=== PATIENT | female | born 1965 | race Caucasian/White ===

== ENCOUNTER 2016-07-15 23:16 | Emergency (ER) | payer OTHER ==
--- NOTE | 2016-07-16 00:26 | DIAGNOSTIC IMAGING REPORT ---
PROCEDURE: XR WRIST MIN 3 VIEWS - RIGHT INDICATION: TRAUMA/INJURY TECHNIQUE: Four views. COMPARISON: None. FINDINGS: Osteopenia. There is no fracture or dislocation. Small rounded chronic-appearing calcification ventral to the lunate. Moderately severe first carpometacarpal joint degenerative changes. IMPRESSION: 1. No acute changes 2. Moderately severe osteoarthritic changes of the first carpometacarpal joint
--- NOTE | 2016-07-16 01:06 | ED CLINICAL REPORT ---
Clinical Report - Physicians/Mid Levels [facility] [address] [place] [address] 07/15/2016 23:19 Patient: MILAN ALEXANDER Time Seen: 2328. Arrived- By private vehicle. Historian- patient. HISTORY OF PRESENT ILLNESS Chief Complaint: Injury to the right wrist. The injury happened today. (dance scott). Fell (backwards on to outstretched hand while dancing). Patient is experiencing moderate pain. Patient denies injury to the head or neck. No other injury. ( reports no loss of consciousness, or other injury to the back, abdomen, pelvis, chest, or other extremities.). REVIEW OF SYSTEMS The patient has had swelling. No tingling, numbness, foreign body or skin laceration. All systems otherwise negative, except as recorded above. PAST HISTORY See nurses notes. Tetanus immunization status is up-to-date. Medications: None. Allergies: No Known Drug Allergy. SOCIAL HISTORY Never smoker. Occasional alcohol use. No drug use. No recent travel. Is a local resident. ADDITIONAL NOTES The nursing notes have been reviewed. PHYSICAL EXAM Vital Signs: 07/15/2016 23:24 BP: 132/88. HR: 83. RR: 16. O2 saturation: 97%. Temp: 97.6 F. Pain level now: 8/10. Blood pressure normal. Oxygen saturation normal. Appearance: Alert. Oriented X3. No acute distress. Head: Head atraumatic. Eyes: Pupils equal, round and reactive to light. Eyes normal inspection. ENT: Ears normal. Nose normal. Pharynx normal. Neck: Normal inspection. Neck supple. C-spine non-tender. CVS: Normal heart rate and rhythm. Heart sounds normal. Pulses normal. Respiratory: No respiratory distress. Breath sounds normal. Chest nontender. Abdomen: No visible injury. Soft and nontender. Bowel sounds normal. Back: No tenderness. Normal inspection. ROM normal. No vertebral point tenderness. Skin: Skin warm and dry. Skin intact. Extremities: (no snuffbox tenderness. No pain with axial loading of the thumb. Mild amount of edema to the radial aspect of the distal forearm/wrist with appropriate amount of tenderness. Compartments are soft. No crepitus. No bony abnormalities. Patient is able to make an okay sign, cross fingers, and extension/flexion at the wrist. Skin is intact. Sensation is intact. Radial pulses are 2+ and symmetrical the contralateral side. Sensation in all digits are intact. no overlying skin changes.). Extremities otherwise negative. Neuro, Vascular and Tendons: Vascular status intact. Sensation intact. Motor intact. Tendon function intact. Neuro: Oriented X 3. No motor deficit. No sensory deficit. PROGRESS AND PROCEDURES Course of Care: he patient is a pleasant 51 year-old female with no pertinent past medical history presenting for eval of right-sided wrist pain. Patient had a fall onto outstretched hands and fell backwards. No other signs of injury. Patient does not require CT scan of the head at the neck based on her history and examination with neck is criteria or [place] head CT scan role. Patient also with a normal neurological examination. Patient will be evaluated radiographs of the wrist. Patient declines offers of pain medication at this time. No neurovascular compromise. Patient is agreeable to the treatment plan. patient's workup was remarkable for fracture of the distal radius. Head discussion the patient in regards to her injury. Recommended patient follow up with orthopedic surgery in regards to her injury and cautioned patient in regards to appropriate follow-up to increase her chances ofimproved healing. Discussed risk factors in the future for arthritis. Patient states that she does have a history of arthritis. After the patient as been splinted, repeat neurovascular exam continues to be unremarkable. No signs of compartment syndrome. Patient is resting in bed and in no acute distress. Discussed with the patient workup here in the emergency department included home care, follow-up, and return precautions. All questions have been answered. The patient expressed understanding of these instructions and was agreeable to them. The patient states that she will follow up with her orthopedic surgeon who is working on her knee. Information for another orthopedic surgeon provided in case the patient is unable to follow up with her orthopedic surgeon. CLINICAL IMPRESSION 07/16/2016 00:23 BP: 114/71. HR: 71. RR: 16. O2 saturation: 99%. Pain level now: 8/10. 07/15/2016 23:24 BP: 132/88. HR: 83. RR: 16. O2 saturation: 97%. Temp: 97.6 F. Pain level now: 8/10. Blood pressure normal. Oxygen saturation normal. Closed nondisplaced fracture of the distal radius (acute). INSTRUCTIONS Warnings: GENERAL WARNINGS: Return or contact your physician immediately if your condition worsens or changes unexpectedly, if not improving as expected, or if other problems arise. Specifically return if pain, vomiting, bleeding, breathing difficulty or fever. Your Current Medications: CONTINUE TAKING THE FOLLOWING MEDICATIONS: None*. OTC Medications: Acetaminophen (available over the counter): take according to label instructions. Follow-up: Return to the emergency department as needed. Follow up with your doctor in three days. Reason for referral: recheck today's concerns. Summary of care provided to patient via paper. Screening today revealed the patient's blood pressure to be in the normal range. The patient should follow up with a primary care provider for blood pressure management. Understanding of the discharge instructions verbalized by patient. Follow-up with: [facility], , [address], , [place] [address] Follow up in one week. Reason for referral: recheck today's concerns if you are unable to see your bone doctor. Summary of care provided to patient via paper. (Electronically signed by Ras Landaverde Dr. 07/20/2016 16:37)
--- NOTE | 2016-07-16 01:06 | ED NURSING NOTES ---
Clinical Report - Nurses [facility] [place] [address] 07/15/2016 23:19 [id number] Triage time 23:24. Acuity: LEVEL 4. Chief Complaint: INJURY TO RIGHT WRIST. --23:29 Cristy Latif R.N. 23:24 07/15/16. BP: 132/88. HR: 83. RR: 16. O2 saturation: 97% on room air. Temp: 97.6 F. Pain level now: 11/02. --23:29 Cristy Latif R.N. Weight: 63.5 kg stated. Height/Length: 69 inches Per Patient. BMI: 20.7. --23:23 Cristy Latif R.N. Medications None. --23:26 Cristy Latif R.N. Allergies No Known Drug Allergy. --23:26 Cristy Latif R.N. History Arrived by private vehicle. Historian: patient. This occurred today (2 hours). ( dancing and hurt wrist when she fell). 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 SOCIAL HX: Never smoker. Alcohol use; consumes beer weekly. No drug use. No infectious disease exposure. FALL RISK ASSESSMENT: Fall risk assessment completed. No fall risk identified. NUTRITIONAL RISK ASSESSMENT: The nutritional risk assessment revealed no deficiencies. FUNCTIONAL ASSESSMENT: Functional assessment: no impairments noted. LEARNING NEEDS ASSESSMENT: The learning needs assessment revealed no barriers. SKIN INTEGRITY ASSESSMENT: Skin integrity risk assessment completed. No skin integrity risk identified. --23:29 Cristy Latif R.N. ADDITIONAL SURGERIES: Knee Surgery. --23:27 Cristy Latif R.N. Interventions ID band on patient. To treatment room. --23:29 Cristy Latif R.N. PHYSICAL ASSESSMENT Ambulatory to room. GENERAL / NEURO / PSYCH: Oriented X 4. Alert. EXTREMITIES: Limited ROM present. Capillary refill is less than 2 seconds in the extremities. Extremity pulses are within normal limits. Right wrist: tenderness, swelling and deformity. Limited ROM secondary to pain. SKIN: Skin intact. Skin is warm and dry. --23:33 Cristy Latif R.N. NURSING PROGRESS NOTES Patient ready for evaluation- chart flagged. --23:33 Cristy Latif R.N. Cold pack applied. --23:33 Cristy Latif R.N. 00:21 07/16/16. ( patient up to use the restroom). --00:21 Cristy Latif R.N. 00:23 07/16/16. BP: 114/71. HR: 71. RR: 16. O2 saturation: 99% on room air. Pain level now: 11/02. --00:24 Cristy Latif R.N. Short arm volar fiberglass upper extremity splint applied to right wrist by tech. Distal pulses intact, sensation intact and motor within normal limits. --00:52 Jack Jeronimo, PERRY Tech1. DISPOSITION / DISCHARGE 01:07/16/16. Departure time: 0110. Condition at departure: improved. No learning barriers present. Discharge instructions provided and reviewed with the patient and spouse. Reviewed referral to an orthopedic surgeon for followup. Activity restrictions reviewed. Follow up contact number. Verbalized understanding. Written instructions provided in German. The patient was discharged home and accompanied by spouse. She left the Emergency Department ambulatory and via private vehicle. Spouse driving. --01:13 Cristy Latif R.N. 01:11 07/16/16. BP: 114/71. HR: 71 (normal rate). RR: 16 (unlabored). O2 saturation: 99% on room air. Temp: 98.6 F. Pain level now: 11/02. --01:13 Cristy Latif R.N. Locked/Released at 07/16/2016 1:13 by Cristy Latif R.N.
--- NOTE | 2016-07-16 01:06 | ED NURSING NOTES ---
Clinical Report - Nurses [facility] [place] [address] 07/15/2016 23:19 [id number] TRI[facility] Triage time 23:24. Acuity: LEVEL 4. Chief Complaint: INJURY TO RIGHT WRIST. --23:29 Cristy Latif R.N. 23:24 07/15/16. BP: 132/88. HR: 83. RR: 16. O2 saturation: 97% on room air. Temp: 97.6 F. Pain level now: 11/02. --23:29 Cristy Latif R.N. Weight: 63.5 kg stated. Height/Length: 69 inches Per Patient. BMI: 20.7. --23:23 Cristy Latif R.N. Medications None. --23:26 Cristy Latif R.N. Allergies No Known Drug Allergy. --23:26 Cristy Latif R.N. History Arrived by private vehicle. Historian: patient. This occurred today (2 hours). ( dancing and hurt wrist when she fell). 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 SOCIAL HX: Never smoker. Alcohol use; consumes beer weekly. No drug use. No infectious disease exposure. FALL RISK ASSESSMENT: Fall risk assessment completed. No fall risk identified. NUTRITIONAL RISK ASSESSMENT: The nutritional risk assessment revealed no deficiencies. FUNCTIONAL ASSESSMENT: Functional assessment: no impairments noted. LEARNING NEEDS ASSESSMENT: The learning needs assessment revealed no barriers. SKIN INTEGRITY ASSESSMENT: Skin integrity risk assessment completed. No skin integrity risk identified. --23:29 Cristy Latif R.N. ADDITIONAL SURGERIES: Knee Surgery. --23:27 Cristy Latif R.N. Interventions ID band on patient. To treatment room. --23:29 Cristy Latif R.N. PHYSICAL ASSESSMENT Ambulatory to room. GENERAL / NEURO / PSYCH: Oriented X 4. Alert. EXTREMITIES: Limited ROM present. Capillary refill is less than 2 seconds in the extremities. Extremity pulses are within normal limits. Right wrist: tenderness, swelling and deformity. Limited ROM secondary to pain. SKIN: Skin intact. Skin is warm and dry. --23:33 Cristy Latif R.N. NURSING PROGRESS NOTES Patient ready for evaluation- chart flagged. --23:33 Cristy Latif R.N. Cold pack applied. --23:33 Cristy Latif R.N. 00:21 07/16/16. ( patient up to use the restroom). --00:21 Cristy Latif R.N. 00:23 07/16/16. BP: 114/71. HR: 71. RR: 16. O2 saturation: 99% on room air. Pain level now: 11/02. --00:24 Cristy Latif R.N. Short arm volar fiberglass upper extremity splint applied to right wrist by tech. Distal pulses intact, sensation intact and motor within normal limits. --00:52 Jack Jeronimo, PERRY Tech1. DISPOSITION / DISCHARGE 01:07/16/16. Departure time: 0110. Condition at departure: improved. No learning barriers present. Discharge instructions provided and reviewed with the patient and spouse. Reviewed referral to an orthopedic surgeon for followup. Activity restrictions reviewed. Follow up contact number. Verbalized understanding. Written instructions provided in [place]. The patient was discharged home and accompanied by spouse. She left the Emergency Department ambulatory and via private vehicle. Spouse driving. --01:13 Cristy Latif R.N. 01:11 07/16/16. BP: 114/71. HR: 71 (normal rate). RR: 16 (unlabored). O2 saturation: 99% on room air. Temp: 98.6 F. Pain level now: 11/02. --01:13 Cristy Latif R.N. Locked/Released at 07/16/2016 1:13 by Cristy Latif R.N.
--- NOTE | 2016-07-16 01:07 | ED ORDER SUMMARY ---
..... Patient: MILAN ALEXANDER OrderSheet [facility] VisitID: [id number] [address] [place] [address] 51y, F Registration Date/Time: 07/15/2016 ORDER SHEET Weight: 63.5 kg (stated) Allergies: No Known Drug Allergy GENERAL ORDERS: Wrist 3 or 4V Right Urgent (23:34 07/15/2016 TChapman R.N. per protocol) (Ack 23:35 AMcQuoid ER Tech1) (23:55 RFay) Ice (23:49 07/15/2016 Tex Coulter) (0:01 TChapman R.N.) Splint (UE) (Right) (Volar) (Short Arm) (00:33 07/16/2016 Tex Coulter) (Ack 0:35 IJurca ER Tech1) (0:41 TChapman R.N.) MEDICATION ORDERS: IV FLUIDS: ORDER SHEET NOTES: [Electronically signed by Cristy Latif R.N. (:07/16/2016)] [Electronically signed by Ras Landaverde Dr. (16:37 07/20/2016)] [Electronically locked/signed by Cristy Latif R.N. (:07/16/2016)]
--- NOTE | 2016-07-16 01:07 | ED ORDER SUMMARY ---
..... Patient: MILAN ALEXANDER OrderSheet [facility] VisitID: [id number] [address] [place] [address] 51y, F Registration Date/Time: 07/15/2016 ORDER SHEET Weight: 63.5 kg (stated) Allergies: No Known Drug Allergy GENERAL ORDERS: Wrist 3 or 4V Right Urgent (23:34 07/15/2016 TChapman R.N. per protocol) (Ack 23:35 AMcQuoid ER Tech1) (23:55 RFay) Ice (23:49 07/15/2016 Tex Coulter) (0:01 TChapman R.N.) Splint (UE) (Right) (Volar) (Short Arm) (00:33 07/16/2016 Tex Coulter) (Ack 0:35 IJurca ER Tech1) (0:41 TChapman R.N.) MEDICATION ORDERS: IV FLUIDS: ORDER SHEET NOTES: [Electronically signed by Cristy Latif R.N. (:07/16/2016)] [Electronically signed by Ras Landaverde Dr. (16:37 07/20/2016)] [Electronically locked/signed by Cristy Latif R.N. (:07/16/2016)]
--- NOTE | 2016-07-20 16:37 | ED MED RECONCILIATION SUMMARY ---
Patient: MILAN ALEXANDER Medication Reconciliation Report [facility] VisitID: [id number] [address] [place] [address] 51y, F Registration Date/Time: 07/15/2016 Weight: 63.5 kg Height/Length: 69 in. BMI: 20.7 ALLERGIES: No Known Drug Allergy The patient's Home Medications are listed below: NONE. The source(s) of the original Home Medication information: Not obtained. The following Medications were given to the patient in the Emergency Department: None. The following Medications were prescribed to the patient: Acetaminophen (available over the counter): take according to label instructions. -- Ras Landaverde Dr.
--- NOTE | 2016-07-20 16:37 | ED DISCHARGE INSTRUCTIONS ---
Patient: MILAN ALEXANDER General Instructions [facility] VisitID: [id number] [address] [place] [address] 51y, F Registration Date/Time: 07/15/2016 07/16/2016 00:23 BP: 114/71. HR: 71. RR: 16. O2 saturation: 99%. Pain level now: 810. 07/15/2016 23:24 BP: 132/88. HR: 83. RR: 16. O2 saturation: 97%. Temp: 97.6 F. Pain level now: 810. Blood pressure normal. Oxygen saturation normal. Closed nondisplaced fracture of the distal radius (acute). INSTRUCTIONS Warnings: GENERAL WARNINGS: Return or contact your physician immediately if your condition worsens or changes unexpectedly, if not improving as expected, or if other problems arise. Specifically return if pain, vomiting, bleeding, breathing difficulty or fever. Your Current Medications: CONTINUE TAKING THE FOLLOWING MEDICATIONS: None*. OTC Medications: Acetaminophen (available over the counter): take according to label instructions. Follow-up: Return to the emergency department as needed. Follow up with your doctor in three days. Reason for referral: recheck today's concerns. Summary of care provided to patient via paper. Screening today revealed the patient's blood pressure to be in the normal range. The patient should follow up with a primary care provider for blood pressure management. Understanding of the discharge instructions verbalized by patient. Follow-up with: [facility], , [address], [place], [address] Follow up in one week. Reason for referral: recheck today's concerns if you are unable to see your bone doctor. Summary of care provided to patient via paper. ADDITIONAL INFORMATION Fracture: Wrist (General) You have a fracture (break) of a bone in your wrist. This may be a small crack or chip in the bone; or a major break with the broken parts pushed out of position. Wrist fractures are treated with a splint or cast. They take about 4-6 weeks to heal. Severe injuries may require surgery. Home Care: Keep your arm elevated to reduce pain and swelling. When sitting or lying down elevate your arm above the level of your heart. You can do this by placing your arm on a pillow that rests on your chest or on a pillow at your side. This is most important during the first 48 hours after injury. Apply an ice pack (ice cubes in a plastic bag, wrapped in a towel) over the injured area for 20 minutes every 1-2 hours the first day. You can place the ice pack inside the sling and directly over the splint/cast. Continue with ice packs 3-4 times a day for the next two days, then as needed for the relief of pain and swelling. Keep the cast/splint completely dry at all times. Bathe with your cast/splint out of the water, protected with a large plastic bag, rubber-banded at the top end. If a fiberglass splint/cast gets wet, you can dry it with a hair-dryer. You may use acetaminophen (Tylenol) or ibuprofen (Motrin, Advil) to control pain, unless another pain medicine was prescribed. [NOTE: If you have chronic liver or kidney disease or ever had a stomach ulcer or GI bleeding, talk with your doctor before using these medicines.] Follow Up with your doctor in one week, or as advised by our staff, to be sure the bone is healing properly. If a splint was applied, it will be changed to a cast during your follow-up visit. [NOTE: Any X-rays taken will be reviewed by a radiologist. You will be notified if there are any new findings that may affect your care.] Get Prompt Medical Attention if any of the following occur: The plaster cast or splint becomes wet or soft The fiberglass cast or splint remains wet for more than 24 hours Increased tightness or pain under the cast or splint Fingers become swollen, cold, blue, numb or tingly You have been given the following additional information: Fracture, Wrist [General] (Electronically signed by Ras Landaverde Dr. 07/20/2016 16:37)
--- NOTE | 2016-07-20 16:37 | ED MAR SUMMARY ---
..... Medication Administration Record [facility] [address] [place], [place] [id number] Patient: MILAN ALEXANDER Visit ID: [id number] 51y, F Weight: 63.5 kg Height/Length: 69 in BMI: 20.7 ALLERGIES: No Known Drug Allergy
--- NOTE | 2016-07-20 16:37 | ED MED RECONCILIATION SUMMARY ---
Patient: MILAN ALEXANDER Medication Reconciliation Report [facility] VisitID: [id number] [address] [place] [address] 51y, F Registration Date/Time: 07/15/2016 Weight: 63.5 kg Height/Length: 69 in. BMI: 20.7 ALLERGIES: No Known Drug Allergy The patient's Home Medications are listed below: NONE. The source(s) of the original Home Medication information: Not obtained. The following Medications were given to the patient in the Emergency Department: None. The following Medications were prescribed to the patient: Acetaminophen (available over the counter): take according to label instructions. -- Ras Landaverde Dr.
--- NOTE | 2016-07-20 16:37 | ED MAR SUMMARY ---
..... Medication Administration Record [facility] [address] [place], [place] [id number] Patient: MILAN ALEXANDER Visit ID: [id number] 51y, F Weight: 63.5 kg Height/Length: 69 in BMI: 20.7 ALLERGIES: No Known Drug Allergy
== END 2016-07-16 01:10 | disposition home or self-care (01) ==
LOC: ED SRH 23:16
DX: S52.501A Unspecified fracture of the lower end of right radius, initial encounter for closed fracture (principal); W18.30XA Fall on same level, unspecified, initial encounter; Y93.41 Activity, dancing; Y92.89 Other specified places as the place of occurrence of the external cause; Y99.9 Unspecified external cause status